=== PATIENT | male | born 1950 ===

== ENCOUNTER 2024-12-12 21:07 | Inpatient (IN) | payer MEDICARE, MEDICAID ==
[~2024-12-12] VITALS: Ht 165.1 cm; Wt 70.6 kg
[2024-12-12 21:30] VITALS: PULSE 30; RESP 12; O2SAT 95
--- NOTE | 2024-12-12 21:51 | ED.PDOC ---
Altered Mental Status HPI Comments 74-year-old male with a history of having hyperkalemia about a month ago and then he left the hospital now presents after he passed out at home and had some incontinence. Patient noted to have a slow heart rate and low blood pressure on arrival Chief Complaint: Syncope Time Seen by MD: 21:25 Reviewed Notes: Nurses Notes Allergies: Coded Allergies: NO KNOWN ALLERGIES (Unverified , 12/12/24) Information Source: Patient, Relative Mode of Arrival: EMS Severity: Moderate, Severe Duration: Since onset Quality: Decreased Alertness Past Medical History PAST MEDICAL HISTORY: DM, High Lipids, HTN Social History Smoker: Non-Smoker Alcohol: Rarely Drugs: Denies Drug Use Constitutional: reports: fatigue Cardiovascular: reports: dizzy spells, syncope All Other Systems: Reviewed and Negative Physical Exam Exam Comments Hypertensive, bradycardic General Appearance: Moderate Distress HEENT: Normal ENT Inspection, Pharynx Normal, TMs Normal Neck: Full Range of Motion, Non-Tender, Normal, Normal Inspection Respiratory: Chest Non-Tender, Lungs Clear, No Accessory Muscle Use, No Respiratory Distress, Normal Breath Sounds Cardiovascular: Bradycardia Breast Exam: Deferred Gastrointestinal: No Organomegaly, Non Tender, No Pulsatile Mass, Normal Bowel Sounds, Soft Genitalia: Deferred Pelvic: Deferred Rectal: Deferred Extremities: No calf tenderness, Normal capillary refill, Normal inspection, Normal range of motion, Non-tender, No pedal edema Musculoskeletal : Apperance: Normal Neurologic: Alert, die caster II-XII nml as Tested, No Motor Deficits, Normal Affect, Normal Mood, No Sensory Deficits Cerebellar Function: Normal Reflexes: Normal Skin: Dry, Normal Color, Warm Lymphatic: No Adenopathy EKG EKG : Cardiac Rhythm: SB Block: 3 Was a procedure done? Was a procedure done?: No Differential Diagnosis (ALOC) Differential Diagnosis: Dehydration, Sepsis, Seizure, Closed Head Injury, SAH, Heart Failure, Renal Failure, Other X-Ray, Labs, Meds, VS Vital Signs Date Time Temp Pulse Resp B/P (MAP) Pulse Ox O2 Delivery O2 Flow Rate FiO2 12/12/24 22:35 28 12/12/24 22:30 65/32 12/12/24 22:20 65/32 12/12/24 22:18 65/32 12/12/24 21:47 98.7 30 12 90/36 (54) 96 98.7 12/12/24 21:17 97.8 35 16 106/51 98 97.8 12/12/24 21:08 33 Lab Test 12/12/24 21:46 Range/Units White Blood Count 8.1 4.4-10.8 10^3/uL Red Blood Count 4.61 4.5-5.90 10^6/uL Hemoglobin 13.6 13.5-17.5 g/dL Hematocrit 39.9 L 41.0-53.0 % Mean Corpuscular Volume 86.6 80.0-100.0 fL Mean Corpuscular Hemoglobin 29.4 28.0-32.0 pg Mean Corpuscular Hemoglobin Concent 34.0 32.0-36.0 g/dL Red Cell Distribution Width 14.1 11.8-14.3 % Platelet Count 64 L 140-450 10^3/uL Mean Platelet Volume 8.0 6.9-10.8 fL Neutrophils (%) (Auto) 70.5 37.0-80.0 % Lymphocytes (%) (Auto) 19.5 10.0-50.0 % Monocytes (%) (Auto) 6.7 0.0-12.0 % Eosinophils (%) (Auto) 2.6 0.0-7.0 % Basophils (%) (Auto) 0.7 0.0-2.0 % Neutrophils # (Auto) 5.7 1.6-8.6 10 ^3/uL Lymphocytes # (Auto) 1.6 0.4-5.4 10 ^3/uL Monocytes # (Auto) 0.5 0-1.3 10 ^3/uL Eosinophils # (Auto) 0.2 0-0.8 10 ^3/uL Basophils # (Auto) 0.1 0-0.2 10 ^3/uL Nucleated Red Blood Cells 0.0 % Platelet Estimate Pending Sodium Level 143 136-145 mmol/L Potassium Level 4.8 3.5-5.1 mmol/L Chloride Level 107 98-107 mmol/L Carbon Dioxide Level 29 20-31 mmol/L Anion Gap 7 5-15 Blood Urea Nitrogen 15 9-23 mg/dL Creatinine 1.01 0.700-1.30 mg/dL Glomerular Filtration Rate Calc 78 >90 mL/min BUN/Creatinine Ratio 14.9 10.0-20.0 Serum Glucose 195 H 74-106 mg/dL Lactic Acid Level 1.7 0.4-2.0 mmol/L Calcium Level 9.0 8.7-10.4 mg/dL Magnesium Level 2.2 1.6-2.6 mg/dL Total Bilirubin 0.7 0.2-1.0 mg/dL Aspartate Amino Transferase (AST) 36 13-40 U/L Alanine Aminotransferase (ALT) 39 7-40 U/L Alkaline Phosphatase 93 46-116 U/L Total Protein 6.4 5.7-8.2 g/dL Albumin 4.2 3.2-4.8 g/dL Current Medications Medications (Trade) Dose Ordered Sig/Jimmy Route Start Time Stop Time Status Last Admin Sodium Chloride 1,000 ml @ 1,000 mls/hr Q1H ONCE IVB 12/12/24 21:45 12/12/24 22:44 DC 12/12/24 22:01 Atropine Sulfate (Atropine Sulfate) 1 mg ONCE ONCE IV 12/12/24 22:15 12/12/24 22:16 DC 12/12/24 22:19 Dopamine HCl/ Dextrose 250 ml @ 13.538 mls/ hr [id number] ONCE IV 12/12/24 22:15 12/13/24 16:42 12/12/24 22:18 Dopamine HCl/ Dextrose 250 ml @ 13.538 mls/ hr [id number] IV 12/12/24 22:15 12/12/24 22:20 Ondansetron HCl (Zofran) 4 mg ONCE ONCE IV 12/12/24 22:45 12/12/24 22:46 DC 12/12/24 22:50 Time of 1ST Reevaluation: 21:50 Reevaluation 1ST: Unchanged Consultation: Cardiology Patient Education/Counseling: Diagnosis, Treatment Family Education/Counseling: Diagnosis, Treatment SEPSIS Sepsis Screen Date sepsis recognized/suspect: Dec 12, 2024 Time Sepsis recognized/suspect: 2111 Recent Procedure: No On Antibiotic Therapy: No Respiratory Rate >20: No Heart Rate >90: Yes Temp<36 C (96.8 F) or >38.3 C: No SBP <90 or MAP <65 mmHG: No New Acute Mental Status Change: No Is the patient on CPAP, BIPAP,: No Physician Orders Electrocardigram (12/12/24 21:22) Complete Blood Count (12/12/24 21:40) Urinalysis (12/12/24 21:40) Heplock Iv (12/12/24 21:40) Blood Culture (12/12/24 21:40) Chest Portable (12/12/24 21:40) Payroll Supervisor (12/12/24 21:40) Dopamine 1600mcg/Ml D5w (12/12/24 22:15) Dopamine 1600mcg/Ml D5w (12/12/24 22:15) Rbc Morphology (12/12/24 21:46) * Cardiology Consult (12/12/24 22:30) *Consult Dr.Mukeshchandra Dalton (12/12/24 22:30) Pacer Pads On Standby (12/12/24 22:31) Transcutaneous Pacer Settings (12/12/24 22:31) Vital Signs Date Time Temp Pulse Resp B/P (MAP) Pulse Ox O2 Delivery O2 Flow Rate FiO2 12/12/24 22:35 28 12/12/24 22:30 65/32 12/12/24 22:20 65/32 12/12/24 22:18 65/32 12/12/24 21:47 98.7 30 12 90/36 (54) 96 98.7 12/12/24 21:17 97.8 35 16 106/51 98 97.8 12/12/24 21:08 33 Laboratory Tests Test 12/12/24 21:46 Lactic Acid Level 1.7 mmol/L (0.4-2.0) White Blood Count 8.1 10^3/uL (4.4-10.8) Medications Medications Dose Ordered Sig/Jimmy Route Start Time Stop Time Status Last Admin Dose Admin Atropine Sulfate 1 mg ONCE ONCE IV 12/12/24 22:15 12/12/24 22:16 DC 12/12/24 22:19 Dopamine HCl/ Dextrose 250 ml @ 13.538 mls/ hr [id number] IV 12/12/24 22:15 12/12/24 22:20 Dopamine HCl/ Dextrose 250 ml @ 13.538 mls/ hr [id number] ONCE IV 12/12/24 22:15 12/13/24 16:42 12/12/24 22:18 Ondansetron HCl 4 mg ONCE ONCE IV 12/12/24 22:45 12/12/24 22:46 DC 12/12/24 22:50 Sodium Chloride 1,000 ml @ 1,000 mls/hr Q1H ONCE IVB 12/12/24 21:45 12/12/24 22:44 DC 12/12/24 22:01 Departure 1 Departure Time of Disposition: 23:06 Impression: Primary Impression: Syncope Additional Impression: Heart block Disposition: 09 ADMITTED INPATIENT Admit to: ICU Condition: Critical Discharged With: Self, Relative, Spouse Comments Patient with a syncopal episode at home. Patient noted to be in third-degree heart block. Patient has been bradycardic and hypotensive. We discussed the case with Cardiology on-call Dr. Crump and he recommends dopamine drip and call the [place] mandarin speaking nanny. I discussed the case with Dr. Velasco who was the [place] mandarin speaking nanny. He states they keep the patient on the dopamine drip and he will see him in 1st thing in the morning to discuss pacemaker implantation. Critical Care Note Critical Care Time?: Yes (35 min-critical care time only) Critical care comment: Total critical care time: Approximately 36 minutes Due to a high probability of clinically significant, life threatening deterioration, the patient required my highest level of preparedness to intervene emergently and I personally spent this critical care time directly and personally managing the patient. This critical care time included obtaining a history; examining the patient; pulse oximetry; ordering and review of studies; arranging urgent treatment with development of a management plan; evaluation of patient's response to treatment; frequent reassessment; and, discussions with other providers. This critical care time was performed to assess and manage the high probability of imminent, life-threatening deterioration that could result in multi-organ failure. It was exclusive of separately billable procedures and treating other patients. Stability Stability form required: No Heart Score Heart Score: Heart Score Response (Comments) Value History Moderate Suspicious 1 EKG Repolarization Disturb 1 Age >65 2 Risk Factors 1 or 2 risk factors 1 Troponin Normal limit 0 Total 5 ROBERTA BURGOS MD Dec 12, 2024 21:51
[2024-12-12] MEDS: SODIUM CHLORIDE 0.9% 1,000 ML IVB ONE (22:01)
[2024-12-12 22:12] LABS: Hemoglobin 13.6 g/dL (13.5-17.5); Nucleated Red Blood Cells % 0.0 %
[2024-12-12 22:13] LABS: Hematocrit 39.9 % (41.0-53.0); Mean Corpuscular Hemoglobin 29.4 pg (28.0-32.0); Mean Corpuscular Volume 86.6 fL (80.0-100.0)
[2024-12-12] MEDS: DOPamine 1600MCG/ML D5W 250 ML IV SCH (22:15)
[2024-12-12] MEDS: DOPamine 1600MCG/ML D5W 250 ML IV ONE ×2 (22:16→22:18)
[2024-12-12] MEDS: ATROPINE SULF 1 MG/10ml SYR IV ONE (22:19)
[2024-12-12 22:25] LABS: Alanine Aminotransferase 39 U/L (7-40); Albumin 4.2 g/dL (3.2-4.8); Alkaline Phosphatase 93 U/L (46-116); Anion Gap 7 (5-15); BUN/Creatinine Ratio 14.9 (10.0-20.0); Bilirubin, Total 0.7 mg/dL (0.2-1.0); Blood Urea Nitrogen 15 mg/dL (9-23); Calcium 9.0 mg/dL (8.7-10.4); Carbon Dioxide 29 mmol/L (20-31); Magnesium 2.2 mg/dL (1.6-2.6); Potassium 4.8 mmol/L (3.5-5.1); Sodium 143 mmol/L (136-145); Total Protein 6.4 g/dL (5.7-8.2)
[2024-12-12 22:26] LABS: Chloride 107 mmol/L (98-107); Glucose 195 mg/dL (74-106)
[2024-12-12] MEDS: ONDANSETRON HCL 4 MG/2 ML VIAL ONE (22:50)
[2024-12-12] MEDS: ONDANSETRON HCL 4 MG/2 ML VIAL IV ONE ×2 (22:50→23:35)
--- NOTE | 2024-12-12 22:53 | DVH ---
INDICATION: hypotension, SOB TECHNIQUE: Frontal view of the chest. COMPARISON: None FINDINGS/IMPRESSION: Prominent interstitial markings. Prominence of the cardiomediastinal silhouette, likely accentuated by technique. No pleural effusion or pneumothorax. No acute osseous abnormality.
[2024-12-13] VITALS (19 sets, daily range): BP systolic 98–133; BP diastolic 57–77; PULSE 64–82; RESP 12–18; TEMP 98.6–99.4; O2SAT 93–100
[2024-12-13] MEDS ORDERED: MORPHINE SULFATE INJ 2 MG/ml SYRG IV PRN ×2 (02:30)
[2024-12-13] MEDS ORDERED: NITROGLYCERIN 0.4 MG SL TAB SL PRN (02:30)
[2024-12-13 03:19] LABS: Urine Protein, UAD Negative (Negative)
--- NOTE | 2024-12-13 03:40 | DVHHPRES ---
History of Present Illness Resident Creating Document: CLARKE DIAZ History of Present Illness Morgan Pono is a 74-year-old male patient who presents to ED with chief complaint of one episode of transient loss of consciousness which lasted 2 minutes, with no prodromes and no head trauma, without postictal., associated with diaphoresis, nausea, vomiting and diarrhea. Per patient he had similar symptoms of proximally two years ago where he was diagnosed with orthostatic syncope, but did not complain of any recent episodes. Patient is compliant with all his medication, he is not taking any beta-blockers or any negative chronotropic medication. Denies dyspnea, chest pain, palpitation and other associated symptoms. Patient was evaluated in ED completed EKG which showed complete AV block with a heart rate of 30 beats per minute associated with hypotension, responding to titratable dopamine drip. Past medical history: Diabetes, hypertension, dyslipidemia, diabetic peripheral neuropathy, peripheral arterial disease, GERD, BPH, hyperkalemia Surgical history: Bilateral hallux repair (multiple trauma due to his work) Family history: Son has testicular cancer Social history: Lives in [place] with family (next of kin is ). Ex tobacco abuse (10 pack-year history of smoking), quit 40 years ago. Denies current tobacco, alcohol and other drug abuse patient is a Orthodox, he refuses transfusions of any blood product Allergies: Denies Home medication: Tamsulosin, gabapentin, metformin 850 mg p.o. b.i.d., atorvastatin, enalapril, SPS for hyperkalemia Patient seen and examined at bedside. Currently feels better than on his admission, currently is on ICU status due to titratable dopamine drip. Planning to be evaluated by Dr. Velasco on a.m. of 12/13/2024 for eventual permanent pacemaker placement Past Medical History Per HPI Past Surgical History Per HPI Family History Per HPI Past Social History Per HPI Review of Systems Review of Systems Per HPI Allergies: Coded Allergies: NO KNOWN ALLERGIES (Unverified , 12/12/24) Medications Current Medications Medications Dose Ordered Sig/Jimmy Route Start Time Stop Time Status Last Admin Dose Admin Dopamine HCl/ Dextrose 250 ml @ 13.538 mls/ hr [id number] IV 12/12/24 22:15 12/12/24 23:30 13.538 MLS/HR Acetaminophen 325 mg Q4HP PRN PO 12/13/24 02:30 Enoxaparin Sodium 40 mg DAILY SC 12/13/24 10:00 UNV Morphine Sulfate 2 mg Q4HPRN PRN IV 12/13/24 02:30 Nitroglycerin 0.4 mg Q5MINP PRN SL 12/13/24 02:30 Morphine Sulfate 2 mg Q30M PRN IV 12/13/24 02:30 Exam Vital Signs Vital Signs Date Time Temp Pulse Resp B/P (MAP) Pulse Ox O2 Delivery O2 Flow Rate FiO2 12/13/24 03:15 115/66 12/13/24 03:00 85 18 93 12/12/24 23:41 98.7 98.7 12/12/24 21:30 Room Air* 0 21 Exam Patient lying in bed, in no acute distress General: Lucid, afebrile, mucosae are moist Cardiovascular: Normal S1 and S2. No murmurs, gallops or rubs Respiratory: Normal ventilation mechanics. Clear lung sounds on auscultation Abdomen: Soft, nontender, no organomegaly, normal bowel sounds MSK/skin: Mobilizes 4 limbs. Skin is dry and warm Neurological: Oriented in 3 spheres. No motor no sensitive deficits. Pupils are isocoric and reactive Labs/Xrays Labs Test 12/13/24 02:20 12/13/24 01:35 12/12/24 21:46 Range/Units Troponin I High Sensitivity 30 </=54 ng/L White Blood Count 8.1 4.4-10.8 10^3/uL Red Blood Count 4.61 4.5-5.90 10^6/uL Hemoglobin 13.6 13.5-17.5 g/dL Hematocrit 39.9 L 41.0-53.0 % Mean Corpuscular Volume 86.6 80.0-100.0 fL Mean Corpuscular Hemoglobin 29.4 28.0-32.0 pg Mean Corpuscular Hemoglobin Concent 34.0 32.0-36.0 g/dL Red Cell Distribution Width 14.1 11.8-14.3 % Platelet Count 64 L 140-450 10^3/uL Mean Platelet Volume 8.0 6.9-10.8 fL Neutrophils (%) (Auto) 70.5 37.0-80.0 % Lymphocytes (%) (Auto) 19.5 10.0-50.0 % Monocytes (%) (Auto) 6.7 0.0-12.0 % Eosinophils (%) (Auto) 2.6 0.0-7.0 % Basophils (%) (Auto) 0.7 0.0-2.0 % Neutrophils # (Auto) 5.7 1.6-8.6 10 ^3/uL Lymphocytes # (Auto) 1.6 0.4-5.4 10 ^3/uL Monocytes # (Auto) 0.5 0-1.3 10 ^3/uL Eosinophils # (Auto) 0.2 0-0.8 10 ^3/uL Basophils # (Auto) 0.1 0-0.2 10 ^3/uL Nucleated Red Blood Cells 0.0 % Platelet Estimate [place] Large Platelets Few Sodium Level 143 136-145 mmol/L Potassium Level 4.8 3.5-5.1 mmol/L Chloride Level 107 98-107 mmol/L Carbon Dioxide Level 29 20-31 mmol/L Anion Gap 7 5-15 Blood Urea Nitrogen 15 9-23 mg/dL Creatinine 1.01 0.700-1.30 mg/dL Glomerular Filtration Rate Calc 78 >90 mL/min BUN/Creatinine Ratio 14.9 10.0-20.0 Serum Glucose 195 H 74-106 mg/dL Lactic Acid Level 1.7 0.4-2.0 mmol/L Calcium Level 9.0 8.7-10.4 mg/dL Magnesium Level 2.2 1.6-2.6 mg/dL Total Bilirubin 0.7 0.2-1.0 mg/dL Aspartate Amino Transferase (AST) 36 13-40 U/L Alanine Aminotransferase (ALT) 39 7-40 U/L Alkaline Phosphatase 93 46-116 U/L Total Protein 6.4 5.7-8.2 g/dL Albumin 4.2 3.2-4.8 g/dL SEPSIS Sepsis Screen Date sepsis recognized/suspect: Dec 12, 2024 Time Sepsis recognized/suspect: 2148 Recent Procedure: No On Antibiotic Therapy: No Respiratory Rate >20: No Heart Rate >90: No Temp<36 C (96.8 F) or >38.3 C: No SBP <90 or MAP <65 mmHG: Yes New Acute Mental Status Change: No Is the patient on CPAP, BIPAP,: No Physician Orders Electrocardigram (12/12/24 21:22) Heplock Iv (12/12/24 21:40) Blood Culture (12/12/24 21:40) Chest Portable (12/12/24 21:40) Circular Sawyer Helper (12/12/24 21:40) Dopamine 1600mcg/Ml D5w (12/12/24 22:15) Dopamine 1600mcg/Ml D5w (12/12/24 22:15) * Cardiology Consult (12/12/24 22:30) *Consult Dr.Mukeshchandra Dalton (12/12/24 22:30) Pacer Pads On Standby (12/12/24 22:31) Transcutaneous Pacer Settings (12/12/24 22:31) Admit (12/13/24 02:25) Code Status (12/13/24 02:25) Acetaminophen Tablet (Tylenol Tablet) (12/13/24 02:30) Enoxaparin Sodium (Lovenox) (12/13/24 10:00) Complete Blood Count (12/13/24 04:00) Comprehensive Metabolic Panel (12/13/24 04:00) Npo (Nothing By Mouth) Diet (12/13/24 Breakfast) Echo 2d Mode Cardiac Dop (12/13/24 02:25) Carotid Duplx W Color Dop (12/13/24 02:25) Morphine Sulfate Injection (12/13/24 02:30) Nitroglycerin Sublingual (Ntrostat Subli (12/13/24 02:30) Morphine Sulfate Injection (12/13/24 02:30) Oxygen By Nasal Cannula (12/13/24 02:25) Stat Ekg For Chest Pain (12/13/24 02:25) Notify Md Of Changes From Base (12/13/24 02:25) Oracle Brm Developer For 24 Hours (12/13/24 02:25) Emergency Dysrhythmia Protocol (12/13/24 02:25) Rhythm Strips Once Every Shift (12/13/24 02:25) Drug Screen (12/13/24 02:43) Urinalysis (12/13/24 02:43) Communication Order (12/13/24 02:58) Vitamin D, 25-Hydroxy (12/13/24 04:00) Vitamin B12 (12/13/24 04:00) Thyroid Stimulating Hormone (12/13/24 04:00) PTPTT (12/13/24 04:00) Phosphorus (12/13/24 04:00) Magnesium (12/13/24 04:00) Lipid Panel (12/13/24 04:00) Hemoglobin A1c (12/13/24 04:00) Sequential Compression Device (12/13/24 03:15) B-Type Natriuretic Peptide (12/13/24 04:00) Vital Signs Date Time Temp Pulse Resp B/P (MAP) Pulse Ox O2 Delivery O2 Flow Rate FiO2 12/13/24 03:15 115/66 12/13/24 03:00 110/68 12/13/24 03:00 85 18 138/77 (97) 93 12/13/24 02:45 88 18 115/76 (89) 100 12/13/24 02:30 83 18 107/61 (76) 97 12/13/24 02:30 107/61 12/13/24 02:15 92 16 116/65 (82) 96 12/13/24 02:00 91 16 117/68 (84) 96 12/13/24 02:00 107/61 12/13/24 01:45 102 17 131/78 (95) 95 12/13/24 01:30 131/74 12/13/24 01:30 104 17 131/73 (92) 95 12/13/24 01:15 107 17 133/74 (93) 90 12/13/24 01:00 126/70 12/13/24 01:00 109 12 120/66 (84) 98 12/13/24 00:50 109 12 120/66 (84) 98 12/13/24 00:45 106 16 108/60 (76) 93 12/13/24 00:38 108/60 12/13/24 00:30 108/60 12/13/24 00:30 104 17 133/74 (93) 95 12/13/24 00:15 107 17 133/74 (93) 90 12/13/24 00:00 106 12/13/24 00:00 109 36 120/66 (84) 98 12/12/24 23:45 113 17 118/62 (80) 99 12/12/24 23:41 98.7 115 14 123/53 (76) 100 98.7 12/12/24 23:30 123/53 923/25 23:30 121 23 123/53 (76) 98 12/12/24 23:20 141/63 12/12/24 23:15 132 23 141/63 (89) 97 12/12/24 23:00 148 26 121/56 (77) 94 12/12/24 22:47 98.7 52 14 99/46 (63) 96 98.7 12/12/24 22:45 70 12/12/24 22:35 28 12/12/24 22:30 65/32 12/12/24 22:18 65/32 12/12/24 21:47 98.7 30 12 90/36 (54) 96 98.7 12/12/24 21:30 30 12 95 Room Air* 0 21 12/12/24 21:17 97.8 35 16 106/51 98 97.8 12/12/24 21:08 33 Laboratory Tests Test 12/12/24 21:46 Lactic Acid Level 1.7 mmol/L (0.4-2.0) White Blood Count 8.1 10^3/uL (4.4-10.8) Medications Medications Dose Ordered Sig/Jimmy Route Start Time Stop Time Status Last Admin Dose Admin Atropine Sulfate 1 mg ONCE ONCE IV 12/12/24 22:15 12/12/24 22:16 DC 12/12/24 22:19 1 MG Dopamine HCl/ Dextrose 250 ml @ 13.538 mls/ hr [id number] IV 12/12/24 22:15 12/12/24 23:30 13.538 MLS/HR Dopamine HCl/ Dextrose 250 ml @ 13.538 mls/ hr [id number] ONCE IV 12/12/24 22:15 12/13/24 16:42 12/12/24 22:18 13.538 MLS/HR Ondansetron HCl 4 mg ONCE ONCE IV 12/12/24 22:45 12/12/24 22:46 DC 12/12/24 22:50 4 MG Ondansetron HCl 4 mg ONCE ONCE IV 12/12/24 23:30 12/12/24 23:31 DC 12/12/24 23:35 4 MG Sodium Chloride 1,000 ml @ 1,000 mls/hr Q1H ONCE IVB 12/12/24 21:45 12/12/24 22:44 DC 12/12/24 22:01 1,000 MLS/HR Assessment/Plan Assessment/Plan Syncope secondary to Complete atrioventricular block EKG shows complete AV block with diffuse deep negative T-waves. Troponin x3 negative Patient currently on titratable dopamine drip (currently 2.5 ug/kg/min), with good chronotropic response Unlikely secondary cause. Pending TSH Cardiology was consulted Thrombocytopenia Yarsanism-refuses transfusion of blood products Have explained risk of not accepting transfusion, patient understands and takes full responsibility of his decision. Avoid heparin. Currently on SCDs Diabetes non-insulin dependent Diabetic peripheral neuropathy Peripheral artery disease Patient's home medications metformin. Currently in hospitalization indicated insulin sliding scale Patient was not on aspirin, probably due to thrombocytopenia. Continue atorvastatin at this point Continue gabapentin Hypertension Dyslipidemia History of hyperkalemia Continue atorvastatin. Discontinued enalapril due to severe hypotension on admission, currently on dopamine drip. No evidence of hyperkalemia in laboratory workup. We will monitor GERD BPH Continue pantoprazole. Discontinue tamsulosin due to hypotension. Evaluate initiating after hemodynamic stability Goals of care discussed with patient and family for over 18 minutes: Full code status Discussed plan with Dr. Feng, patient and nurses: We will keep patient in ICU status due to dopamine drip, keep patient NPO for evaluation by Cardiology for probable permanent pacemaker placement. Patient has poor prognosis Critical care time spent including discussion with nursing and family, excluding procedures: 76 minutes Plan discussed with: Patient, Spouse, Son, Other (Nurses) My Orders Orders - CLARKE DIAZ RESIDENT Procedure Category Date Status Time Admit ADMIT 12/13/24 Transmitted 02:25 Code Status CODE 12/13/24 Transmitted 02:25 Acetaminophen Tablet PHA 12/13/24 In Process (Tylenol Tablet) 02:30 Enoxaparin Sodium PHA 12/13/24 Pending (Lovenox) 10:00 Complete Blood Count LAB 12/13/24 Logged 04:00 Comprehensive LAB 12/13/24 Logged Metabolic Panel 04:00 Npo (Nothing By DIET 12/13/24 Transmitted Mouth) Diet Breakfast Echo 2d Mode Cardiac US 12/13/24 Logged DOP 02:25 Carotid Duplx W Color US 12/13/24 Logged DOP 02:25 Morphine Sulfate PHA 12/13/24 In Process Injection 02:30 Nitroglycerin PHA 12/13/24 In Process Sublingual (Ntrostat 02:30 Morphine Sulfate PHA 12/13/24 In Process Injection 02:30 Oxygen By Nasal RT 12/13/24 Transmitted Cannula 02:25 Stat Ekg For Chest [facility] 12/13/24 In Process Pain 02:25 Notify Of Changes [facility] 12/13/24 In Process From Base 02:25 Oracle Brm Developer For [facility] 12/13/24 In Process 24 Hours 02:25 Emergency Dysrhythmia [facility] 12/13/24 In Process Protocol 02:25 Rhythm Strips Once [facility] 12/13/24 In Process Every Shift 02:25 Drug Screen LAB 12/13/24 In Process 02:43 Urinalysis LAB 12/13/24 In Process 02:43 Communication Order ORDERS 12/13/24 Transmitted 02:58 Vitamin D, 25-Hydroxy LAB 12/13/24 Verified 04:00 Vitamin B12 LAB 12/13/24 Verified 04:00 Thyroid Stimulating LAB 12/13/24 Verified Hormone 04:00 PTPTT LAB 12/13/24 Verified 04:00 Phosphorus LAB 12/13/24 Verified 04:00 Magnesium LAB 12/13/24 Verified 04:00 Lipid Panel LAB 12/13/24 Verified 04:00 Hemoglobin A1c LAB 12/13/24 Verified 04:00 Sequential DORIS 12/13/24 Verified Compression Device 03:15 B-Type Natriuretic LAB 12/13/24 Verified Peptide 04:00 Date of Service: Dec 13, 2024 Billing Provider: JAMES FENG MD Common Visit Codes: 10810-[id number] INP/OBS CARE (HIGH) Secondary Visit Codes: [id number] CARE PLAN 30 MINUTES CLARKE DIAZ RESIDENT Dec 13, 2024 03:40
[2024-12-13] MEDS ORDERED: DEXTROSE (50%) 50ML SYRG IV PRN (03:45)
[2024-12-13] MEDS: PANTOPRAZOLE 40 MG/10 ML VIAL INJ IV ONE (03:54)
[2024-12-13 04:00] LABS: Amphetamine Screen, Urine Neg (NEGATIVE); Barbiturate Scree,Urine Neg (NEGATIVE); Benzodiazephine Screen, Urine Neg (NEGATIVE); Cannabinoid Screen, Urine Neg (NEGATIVE); Cocaine Screen, Urine Neg (NEGATIVE); Opiate Scree,Urine Neg (NEGATIVE); Phencyclidine Screen, Urine Neg (NEGATIVE)
[2024-12-13 05:03] LABS: Hematocrit 42.9 % (41.0-53.0); Hemoglobin 14.5 g/dL (13.5-17.5); Mean Corpuscular Hemoglobin 29.0 pg (28.0-32.0); Mean Corpuscular Volume 85.9 fL (80.0-100.0); Nucleated Red Blood Cells % 0.1 %
[2024-12-13 05:28] LABS: Alanine Aminotransferase 76 U/L (7-40); Albumin 4.7 g/dL (3.2-4.8); Alkaline Phosphatase 95 U/L (46-116); Anion Gap 9 (5-15); BUN/Creatinine Ratio 14.6 (10.0-20.0); Bilirubin, Total 1.2 mg/dL (0.2-1.0); Blood Urea Nitrogen 14 mg/dL (9-23); Calcium 9.2 mg/dL (8.7-10.4); Carbon Dioxide 29 mmol/L (20-31); Chloride 106 mmol/L (98-107); Cholesterol 130 mg/dL (< 200); Glucose 167 mg/dL (74-106); HDL Cholesterol 53 mg/dL (40-59); Magnesium 2.1 mg/dL (1.6-2.6); Potassium 4.0 mmol/L (3.5-5.1); Sodium 144 mmol/L (136-145); Total Protein 7.3 g/dL (5.7-8.2); Triglycerides 51 mg/dL (< 150)
[2024-12-13] MEDS: ACCU-CHEK COMFORT CURVE STRIP VI SCH (05:57)
[2024-12-13] MEDS: InsuLIN REG 1unit/0.01ml Soln (100units/ml) SC SCH (06:03)
[2024-12-13 06:12] LABS: INR 1.06 (0.9-1.15); Partial Thromboplastin Time 23.4 SEC (24.5-34.5); Prothrombin Time 11.2 sec (9.3-11.8)
--- NOTE | 2024-12-13 07:08 | ECG ---
[facility] Test Date: 2024-12-12 Test Time: 22:35:54 Pat Name: ALAN CRAWFORD Department: Room: 0292T Gender: M Physician/Allergy/Immunology: CELESTINO : 1950 Requested By: EMERGENCY EMERGENCY Order Number: [id number] Reading MD: Jason Leung Measurements Intervals [place] Rate: 28 P: 53 IA: 0 QRS: -29 QRSD: 124 T: 263 QT: 674 QTc: 460 Interpretive Statements AV block, complete (third degree) Left bundle branch block Electronically Signed On 12-21-2024 21:29:44 PDT by Jason Leung Please click the below link to view image of tracing.
--- NOTE | 2024-12-13 07:14 | DVHINCON2 ---
Date of service: Dec 13, 2024 History of Present Illness HPI Patient is 74 year old male who presented with episode of LOC which was followed by nausea/vomiting and diarrhea. While in ED was found to have complete heart block. Past Medical History Others PMH includes: DM, hypertension, hyperlipidemia, Diabetic Neuropathy, PAd, GERD, BPG, and old history of hyperkalemia Alocohol: None Lives with: With family Review of Systems Constitutional: No symptom reported Ears, Nose, & Throat: No symptom reported Eyes: No symptom reported Cardiovascular: Lt Headedness Gastrointestinal: Nausea, Vomiting, Diarrhea Genitourinary: No symptom reported Musculoskeletal: No symptom reported All Other Systems 14 point review of system was performed. Relevant findings as per above and as per HPI. Otherwise, negative H&P Exam Vital Signs Vital Signs Date Time Temp Pulse Resp B/P (MAP) Pulse Ox O2 Delivery O2 Flow Rate FiO2 12/13/24 07:00 67 14 146/59 (88) 98 12/12/24 23:41 98.7 98.7 12/12/24 21:30 Room Air* 0 21 General Appeara: Well developed Head Exam: Normal inspection Neck Exam: Normal inspection Eye Exam: bilateral eye PERRL Mouth: Normal Inspection Pulmonary/Respiratory: Lungs clear Cardiovascular/Chest: Regular rate Peripheral Pulses: 2+ carotid (R), 2+ carotid (L), 2+ femoral (R), 2+ femoral (L), 2+ dorsalis pedis (R), 2+ dorsalis pedis (L), 2+ Radial (R), 2+ Radial (L) Abdominal Exam: Normal bowel sounds, Soft, No hepatospenomegaly Neuro/Mental St: Alert, Oriented Appearance: Appropriate appearance Eye contact/ Speech: Cooperative Labs/Xrays Labs Test 12/13/24 05:56 12/13/24 05:42 12/13/24 04:49 12/13/24 02:20 Range/Units POC Glucose 154 H 70-106 mg/dl Prothrombin Time 11.2 9.3-11.8 sec Prothrombin Time INR 1.06 0.9-1.15 Activated Partial Thromboplast Time 23.4 L 24.5-34.5 SEC White Blood Count 7.6 4.4-10.8 10^3/uL Red Blood Count 5.00 4.5-5.90 10^6/uL Hemoglobin 14.5 13.5-17.5 g/dL Hematocrit 42.9 41.0-53.0 % Mean Corpuscular Volume 85.9 80.0-100.0 fL Mean Corpuscular Hemoglobin 29.0 28.0-32.0 pg Mean Corpuscular Hemoglobin Concent 33.8 32.0-36.0 g/dL Red Cell Distribution Width 14.4 H 11.8-14.3 % Platelet Count 70 L 140-450 10^3/uL Mean Platelet Volume 7.4 6.9-10.8 fL Neutrophils (%) (Auto) 81.1 H 37.0-80.0 % Lymphocytes (%) (Auto) 12.4 10.0-50.0 % Monocytes (%) (Auto) 5.7 0.0-12.0 % Eosinophils (%) (Auto) 0.3 0.0-7.0 % Basophils (%) (Auto) 0.5 0.0-2.0 % Neutrophils # (Auto) 6.2 1.6-8.6 10 ^3/uL Lymphocytes # (Auto) 0.9 0.4-5.4 10 ^3/uL Monocytes # (Auto) 0.4 0-1.3 10 ^3/uL Eosinophils # (Auto) 0 0-0.8 10 ^3/uL Basophils # (Auto) 0 0-0.2 10 ^3/uL Nucleated Red Blood Cells 0.1 % Sodium Level 144 136-145 mmol/L Potassium Level 4.0 3.5-5.1 mmol/L Chloride Level 106 98-107 mmol/L Carbon Dioxide Level 29 20-31 mmol/L Anion Gap 9 5-15 Blood Urea Nitrogen 14 9-23 mg/dL Creatinine 0.96 0.700-1.30 mg/dL Glomerular Filtration Rate Calc 83 >90 mL/min BUN/Creatinine Ratio 14.6 10.0-20.0 Serum Glucose 167 H 74-106 mg/dL Hemoglobin A1c 6.2 H <5.7 % A1C Calcium Level 9.2 8.7-10.4 mg/dL Phosphorus Level 3.4 2.4-5.1 mg/dL Magnesium Level 2.1 1.6-2.6 mg/dL Total Bilirubin 1.2 H 0.2-1.0 mg/dL Aspartate Amino Transferase (AST) 67 H 13-40 U/L Alanine Aminotransferase (ALT) 76 H 7-40 U/L Alkaline Phosphatase 95 46-116 U/L B-Type Natriuretic Peptide 155.63 0-100 pg/mL Total Protein 7.3 5.7-8.2 g/dL Albumin 4.7 3.2-4.8 g/dL Triglycerides Level 51 < 150 mg/dL Cholesterol Level 130 < 200 mg/dL LDL Cholesterol 73 < 100 mg/dL HDL Cholesterol 53 40-59 mg/dL Vitamin B12 Level 1905 H 211-911 pg/mL Vitamin D 25-Hydroxy 36.4 30.0-100 ng/mL Thyroid Stimulating Hormone (TSH) 0.65 0.55-4.78 uIU/mL Urine Color Colorless Yellow Urine Clarity Clear Clear Urine pH 7.0 5.0-9.0 Urine Specific [place] 1.008 1.001-1.035 Urine Protein Negative Negative Urine Ketones Trace Negative Urine Blood Trace H Negative /uL Urine Nitrite Negative Negative Urine Bilirubin Negative Negative Urine Urobilinogen Normal Negative mg/dL Urine Leukocyte Esterase Negative Negative /uL Urine RBC 17 0 - 3 /hpf Urine Microscopic WBC < 1 0-3 /HPF Urine Squamous Epithelial Cells None seen <5 /hpf Urine Bacteria None seen None Seen /hpf Urine Hyaline Casts Few 0 - 2 /lpf Urine Glucose 2+ H Normal mg/dL Urine Opiates Screen Neg NEGATIVE Urine Fentanyl Screen Neg NEGATIVE Urine Barbiturates Screen Neg NEGATIVE Urine Phencyclidine Screen Neg NEGATIVE Urine Amphetamines Screen Neg NEGATIVE Urine Benzodiazepines Screen Neg NEGATIVE Urine Cocaine Screen Neg NEGATIVE Urine Cannabinoids Screen Neg NEGATIVE Test 12/13/24 01:35 12/12/24 21:46 Range/Units Troponin I High Sensitivity 30 </=54 ng/L Platelet Estimate [place] Large Platelets Few Lactic Acid Level 1.7 0.4-2.0 mmol/L Assessment/Plan Plan Patient is 74 year old male who presented with episode of LOC which was followed by nausea/vomiting and diarrhea. While in ED was found to have complete heart block. NAD, no JVD, no goiter, Lungs are Clear to Auscultation, Cardiac: RR, no thrill, no gallop, BS+, no tenderness, no hepatomegally, no peripheral edema DP: 2+ bilateral, no gross lateralized neurologic deficit PMH includes: DM, hypertension, hyperlipidemia, Diabetic Neuropathy, PAd, GERD, BPG, and old history of hyperkalemia Creat: 1.01 - 0.96 K: 4.8 - 4.0 Trop (high sensitive): 14 - 30 BNP: 155.63 TSH: 0.65 UDS: non-revealing Chest xry: Arrival EKG: complete heart block Patient with syncope. Was found to have complete heart block in ED Syncope Complete heart block DM hypertension hyperlipidemia PAD Cardiac suggestion for management Manage in ICU Follow up electrolytes and kidney function test and correct abnormalities EP evaluation for PM implantation Echocardiogram Evaluation and management of co-morbidities as per primary team Further evaluation and management as per above and as per clinical course Thank you for consultation. A total of 75 minutes was spent reviewing the patient record, examining the patient, making a diagnostic and therapeutic plan, discussing this plan with medical personnel, following up on diagnostic studies and following the patient for clinical stability excluding any and all procedures. At least 50% of this time was spent in direct, [id number] contact. Thank you for allowing me to participate in this patient's care. Further recommendations will depend on patient's clinical course. Please do not hesitate to contact me if you have any questions or concerns. This medical document was created using electronic medical record system with [employer] computerized dictation system. Although this document has been carefully reviewed, there may still be some phonetic and typographical errors. These areas are purely typographical due to the imperfection of the software programs, and do not reflect any compromise in the patient's medical care. Plan discussed with: Patient, Other (nurse) FRIDA SU MD Dec 13, 2024 07:14
--- NOTE | 2024-12-13 09:02 | DVH ---
Carotid Duplex Date: 12/13/2024 07:19 AM Clinical History: Syncope Comparison: None Technique: Duplex Doppler evaluation of the extracranial carotid and vertebral arteries including col or Doppler and spectral/pulsed waveform analysis was performed. Findings: Velocities within normal limits. IMPRESSION: No hemodynamically significant stenosis noted in the right carotid system. No hemodynamically significant stenosis noted in the left carotid system. Reference: Radiology 2003; 229:[id number]
[2024-12-13] MEDS ORDERED: ENOXAPARIN SOD 40 MG/0.4 ML SYRINGE SC SCH (10:00)
[2024-12-13] MEDS: PANTOPRAZOLE 40 MG/10 ML VIAL INJ IV SCH (10:24)
--- NOTE | 2024-12-13 15:05 | DVHPN2 ---
Subjective Patient is seen at bedside today, doing well. Reviewed: H&P Changes from previous H/P or p: No Changes General: Per HPI Objective Vitals Vital Signs Date Time Temp Pulse Resp B/P (MAP) Pulse Ox O2 Delivery O2 Flow Rate FiO2 12/13/24 14:50 132/70 12/13/24 12:00 73 12/13/24 10:30 17 96 12/13/24 09:15 98.5 98.5 12/13/24 09:15 Room Air* 0 21 Exam GEN: Healthy appearing, well-developed, NAD. HEENT: NC/AT; MMM. CV: RRR, no m/r/g. LUNGS: CTAB, no w/r/c. ABD: Soft, NT/ND, NBS, no masses or organomegaly. EXT: skin Warm, well perfused. no rashes. No clubbing, cyanosis, or edema. NEURO: Ambulating with no limitations. No focal deficits. Medications Current Medications Medications Dose Ordered Sig/Jimmy Route Start Time Stop Time Status Last Admin Dose Admin Dopamine HCl/ Dextrose 250 ml @ 13.538 mls/ hr [id number] IV 12/12/24 22:15 12/12/24 23:30 13.538 MLS/HR Acetaminophen 325 mg Q4HP PRN PO 12/13/24 02:30 Morphine Sulfate 2 mg Q4HPRN PRN IV 12/13/24 02:30 Nitroglycerin 0.4 mg Q5MINP PRN SL 12/13/24 02:30 Morphine Sulfate 2 mg Q30M PRN IV 12/13/24 02:30 Diagnostic Test (Pha) 1 strip Q6HR 12/13/24 06:00 12/13/24 12:00 1 STRIP Insulin Human Regular Q6HR SC 12/13/24 06:00 12/13/24 06:03 2 UNITS Dextrose 50 ml UD PRN IV 12/13/24 03:45 Atorvastatin Calcium 20 mg HS PO 12/13/24 22:00 Pantoprazole Sodium 40 mg DAILY IV 12/13/24 10:00 12/13/24 10:24 40 MG Sodium Chloride 1,000 ml @ 150 mls/hr Q6H40M IV 12/13/24 14:00 UNV Laboratory Results Laboratory Tests 12/13/24 04:49 Chemistry Test 12/12/24 21:46 12/13/24 04:49 Albumin 4.2 g/dL (3.2-4.8) 4.7 g/dL (3.2-4.8) Calcium Level 9.0 mg/dL (8.7-10.4) 9.2 mg/dL (8.7-10.4) Magnesium Level 2.2 mg/dL (1.6-2.6) 2.1 mg/dL (1.6-2.6) Total Protein 6.4 g/dL (5.7-8.2) 7.3 g/dL (5.7-8.2) Phosphorus Level 3.4 mg/dL (2.4-5.1) Coagulation Test 12/13/24 05:42 Prothrombin Time 11.2 sec (9.3-11.8) Prothrombin Time INR 1.06 (0.9-1.15) Activated Partial Thromboplast Time 23.4 SEC (24.5-34.5) L Lipid panel Test 12/13/24 04:49 Cholesterol Level 130 mg/dL (< 200) HDL Cholesterol 53 mg/dL (40-59) Triglycerides Level 51 mg/dL (< 150) Cardiac Markers Test 12/13/24 04:49 B-Type Natriuretic Peptide 155.63 pg/mL (0-100) LFT Test 12/12/24 21:46 12/13/24 04:49 Alanine Aminotransferase (ALT) 39 U/L (7-40) 76 U/L (7-40) H Alkaline Phosphatase 93 U/L (46-116) 95 U/L (46-116) Aspartate Amino Transferase (AST) 36 U/L (13-40) 67 U/L (13-40) H Total Bilirubin 0.7 mg/dL (0.2-1.0) 1.2 mg/dL (0.2-1.0) H HgA1c, TSH Test 12/13/24 04:49 Hemoglobin A1c 6.2 % A1C (<5.7) H Thyroid Stimulating Hormone (TSH) 0.65 uIU/mL (0.55-4.78) Urinalysis Test 12/13/24 02:20 Urine Color Colorless (Yellow) Urine Clarity Clear (Clear) Urine pH 7.0 (5.0-9.0) Urine Specific [place] 1.008 (1.001-1.035) Urine Protein Negative (Negative) Urine Ketones Trace (Negative) Urine Blood Trace /uL (Negative) H Urine Nitrite Negative (Negative) Urine Bilirubin Negative (Negative) Urine Urobilinogen Normal mg/dL (Negative) Urine Leukocyte Esterase Negative /uL (Negative) Urine RBC 17 /hpf (0 - 3) Urine Microscopic WBC < 1 /HPF (0-3) Urine Squamous Epithelial Cells None seen /hpf (<5) Urine Bacteria None seen /hpf (None Seen) Urine Hyaline Casts Few /lpf (0 - 2) Urine Glucose 2+ mg/dL (Normal) H Labs and/or images reviewed: Labs reviewed by me, Image(s) reviewed by me Assessment/Plan Assessment/Plan 74-year-old male with a history of having hyperkalemia about a month ago and then he left the hospital now presents after he passed out at home and had some incontinence. Patient noted to have a slow heart rate and low blood pressure on arrival 12/13: patient seen at bedside, presented for syncope. on initial eval concern for 3rd degree block and started on dopamine, goal HR>40 and <70. EP consulted and possible plan for procedure OR for PPM today. will f/u with patient thereafter. there is noted thrombocytopenia but patient unaware. dx: Complete heart block, s/p PPM insertion 12/13/24 Syncope, due to above DM type 2, with neuropathy diabetic neuropathy hypertension hyperlipidemia PAD GERD BPH HLD plan: - continue dopamine . titrate to goal HR>40 and <70 - defer PPM decision to EP unit clerk - continue other home meds (no blockers, CCB or Bblockers) ICU full code Plan discussed with: Patient Date of Service: Dec 13, 2024 Billing Provider: FILIPPO KELLER MD Common Visit Codes: [id number] CARE 30-74 MIN FILIPPO KELLER MD Dec 13, 2024 15:05
[2024-12-13] MEDS: MIDAZOLAM HCL 2MG/2ML 2ml VIAL (1mg/ml) ONE (15:42)
[2024-12-13] MEDS: VANCOMYCIN HCL 1000 MG VL ONE (15:42)
[2024-12-13] MEDS: LIDOCAINE 2%HCL (LOCAL ANESTH.) INJ 20ML MDV ONE (15:42)
[2024-12-13] MEDS: fentaNYL CITRATE 100 MCG/2 ML VL ONE (15:42)
[2024-12-13] MEDS: VANCOMYCIN 1GM/250ML KIT 250 ML IV ONE (15:43)
[2024-12-13] MEDS: IODIXANOL 320MG/ML 100ML BTL IV ONE (16:12)
--- NOTE | 2024-12-13 18:10 | DVHINCON2 ---
Date of service: Dec 13, 2024 Reason for Consultation Complete Heart Block History of Present Illness This is a 74-year old male who initially presented 12/12/2024 with reported syncope. Upon ED arrival patient was found to be in complete heart block with lowest documented heart rates within the 20's subsequently initiated on Dopamine infusion for rate support. Echocardiogram had revealed a preserved LVEF of 55- 60%. TSH was found normal at 0.65. Electrolytes (magnesium/potassium) were found within normal ranges. Serial HS troponin trend was found negative. Electrop hysiology services were subsequently involved by primary team request for EP aspects of care. Echocardiogram: Left ventricle: Moderate concentric left ventricular hypertrophy was seen. LVEF was 55-60%. There was no gross wall motion abnormality. Abnormal relaxation of left ventricular diastolic function was observed. Right ventricle was normal-sized with normal systolic function. Both atria were normal-sized. Aortic valve: Aortic valve was trileaflet. There was no aortic insufficiency/stenosis. There was trace mitral/tricuspid regurgitation. Pulmonary valve did not reveal any insufficiency. Right katherine tricular systolic pressure was assessed normal at 22 mm Hg.There was trace pericardial effusion.IVC was not visualized. Past Medical History Reviewed Past Surgical History Reviewed Allergies: Coded Allergies: NO KNOWN ALLERGIES (Unverified , 12/12/24) Current Medications Current Medications Medications (Trade) Dose Ordered Sig/Jimmy Route PRN Reason Start Time Stop Time Status Last Admin Dopamine HCl/ Dextrose 250 ml @ 13.538 mls/ hr [id number] IV 12/12/24 22:15 12/12/24 23:30 Acetaminophen (Tylenol Tablet) 325 mg Q4HP PRN PO MILD PAIN (1-3 PAIN SCALE) 12/13/24 02:30 Enoxaparin Sodium (Lovenox) 40 mg DAILY SC 12/13/24 10:00 12/13/24 03:19 DC Morphine Sulfate 2 mg Q4HPRN PRN IV SEVERE PAIN (7-10 PAIN SCALE) 12/13/24 02:30 Nitroglycerin (Ntrostat Sublingual) 0.4 mg Q5MINP PRN SL FOR CHEST PAIN 12/13/24 02:30 Morphine Sulfate 2 mg Q30M PRN IV FOR CHEST PAIN 12/13/24 02:30 Diagnostic Test (Pha) (Accu-Chek Comfort Curve T) 1 strip Q6HR 12/13/24 06:00 12/13/24 12:00 Insulin Human Regular (InsuLIN R) Q6HR SC 12/13/24 06:00 12/13/24 06:03 Dextrose 50 ml UD PRN IV Blood Sugar LESS THAN 60 12/13/24 03:45 Atorvastatin Calcium (Lipitor) 20 mg HS PO 12/13/24 22:00 Pantoprazole Sodium (Protonix) 40 mg DAILY IV 12/13/24 10:00 12/13/24 10:24 Sodium Chloride 1,000 ml @ 150 mls/hr Q6H40M IV 12/13/24 14:00 Review of Systems A 14-point review of systems is negative unless otherwise noted above Vital Signs Vital Signs Date Time Temp Pulse Resp B/P (MAP) Pulse Ox O2 Delivery O2 Flow Rate FiO2 12/13/24 14:50 132/70 12/13/24 14:45 73 19 95 12/13/24 09:15 98.5 98.5 12/13/24 09:15 Room Air* 0 21 Physical Exam Heart: S1 and S2 regular. Bradycardic Lungs: Clear to auscultation Abdomen: Benign. Extremities: Distal pulses palpable, 2+. No evidence for peripheral edema Labs/Diagnostic Data Labs Test 12/13/24 12:50 12/13/24 05:42 12/13/24 04:49 12/13/24 02:20 Range/Units POC Glucose 117 H 70-106 mg/dl Prothrombin Time 11.2 9.3-11.8 sec Prothrombin Time INR 1.06 0.9-1.15 Activated Partial Thromboplast Time 23.4 L 24.5-34.5 SEC White Blood Count 7.6 4.4-10.8 10^3/uL Red Blood Count 5.00 4.5-5.90 10^6/uL Hemoglobin 14.5 13.5-17.5 g/dL Hematocrit 42.9 41.0-53.0 % Mean Corpuscular Volume 85.9 80.0-100.0 fL Mean Corpuscular Hemoglobin 29.0 28.0-32.0 pg Mean Corpuscular Hemoglobin Concent 33.8 32.0-36.0 g/dL Red Cell Distribution Width 14.4 H 11.8-14.3 % Platelet Count 70 L 140-450 10^3/uL Mean Platelet Volume 7.4 6.9-10.8 fL Neutrophils (%) (Auto) 81.1 H 37.0-80.0 % Lymphocytes (%) (Auto) 12.4 10.0-50.0 % Monocytes (%) (Auto) 5.7 0.0-12.0 % Eosinophils (%) (Auto) 0.3 0.0-7.0 % Basophils (%) (Auto) 0.5 0.0-2.0 % Neutrophils # (Auto) 6.2 1.6-8.6 10 ^3/uL Lymphocytes # (Auto) 0.9 0.4-5.4 10 ^3/uL Monocytes # (Auto) 0.4 0-1.3 10 ^3/uL Eosinophils # (Auto) 0 0-0.8 10 ^3/uL Basophils # (Auto) 0 0-0.2 10 ^3/uL Nucleated Red Blood Cells 0.1 % Sodium Level 144 136-145 mmol/L Potassium Level 4.0 3.5-5.1 mmol/L Chloride Level 106 98-107 mmol/L Carbon Dioxide Level 29 20-31 mmol/L Anion Gap 9 5-15 Blood Urea Nitrogen 14 9-23 mg/dL Creatinine 0.96 0.700-1.30 mg/dL Glomerular Filtration Rate Calc 83 >90 mL/min BUN/Creatinine Ratio 14.6 10.0-20.0 Serum Glucose 167 H 74-106 mg/dL Hemoglobin A1c 6.2 H <5.7 % A1C Calcium Level 9.2 8.7-10.4 mg/dL Phosphorus Level 3.4 2.4-5.1 mg/dL Magnesium Level 2.1 1.6-2.6 mg/dL Total Bilirubin 1.2 H 0.2-1.0 mg/dL Aspartate Amino Transferase (AST) 67 H 13-40 U/L Alanine Aminotransferase (ALT) 76 H 7-40 U/L Alkaline Phosphatase 95 46-116 U/L B-Type Natriuretic Peptide 155.63 0-100 pg/mL Total Protein 7.3 5.7-8.2 g/dL Albumin 4.7 3.2-4.8 g/dL Triglycerides Level 51 < 150 mg/dL Cholesterol Level 130 < 200 mg/dL LDL Cholesterol 73 < 100 mg/dL HDL Cholesterol 53 40-59 mg/dL Vitamin B12 Level 1905 H 211-911 pg/mL Vitamin D 25-Hydroxy 36.4 30.0-100 ng/mL Thyroid Stimulating Hormone (TSH) 0.65 0.55-4.78 uIU/mL Urine Color Colorless Yellow Urine Clarity Clear Clear Urine pH 7.0 5.0-9.0 Urine Specific [place] 1.008 1.001-1.035 Urine Protein Negative Negative Urine Ketones Trace Negative Urine Blood Trace H Negative /uL Urine Nitrite Negative Negative Urine Bilirubin Negative Negative Urine Urobilinogen Normal Negative mg/dL Urine Leukocyte Esterase Negative Negative /uL Urine RBC 17 0 - 3 /hpf Urine Microscopic WBC < 1 0-3 /HPF Urine Squamous Epithelial Cells None seen <5 /hpf Urine Bacteria None seen None Seen /hpf Urine Hyaline Casts Few 0 - 2 /lpf Urine Glucose 2+ H Normal mg/dL Urine Opiates Screen Neg NEGATIVE Urine Fentanyl Screen Neg NEGATIVE Urine Barbiturates Screen Neg NEGATIVE Urine Phencyclidine Screen Neg NEGATIVE Urine Amphetamines Screen Neg NEGATIVE Urine Benzodiazepines Screen Neg NEGATIVE Urine Cocaine Screen Neg NEGATIVE Urine Cannabinoids Screen Neg NEGATIVE Test 12/13/24 01:35 12/12/24 21:46 Range/Units Troponin I High Sensitivity 30 </=54 ng/L Platelet Estimate [place] Large Platelets Few Lactic Acid Level 1.7 0.4-2.0 mmol/L Plan/Recommendation ASSESSMENT: This is a 74-year old male who initially presented 12/12/2024 with reported syncope. Upon ED arrival patient was found to be in complete heart block with lowest documented heart rates within the 20's subsequently initiated on Dopamine infusion for rate support. Echocardiogram had revealed a preserved LVEF of 55- 60%. TSH was found normal at 0.65. Electrolytes (magnesium/potassium) were found within normal ranges. Serial HS troponin trend was found negative. Denies any use of AV ezequiel blocking agents. Electrophysiology services were subsequently involved by primary team request for EP aspects of care. Echocardiogram: Left ventricle: Moderate concentric left ventricular hypertrophy was seen. LVEF was 55-60%. There was no gross wall motion abnorma lity. Abnormal relaxation of left ventricular diastolic function was observed. Right ventricle was normal-sized with normal systolic function. Both atria were normal-sized. Aortic valve: Aortic valve was trileaflet. There was no aortic insufficiency/stenosis. There was trace mitral/tricuspid regurgitation. Pulmonary valve did not reveal any insufficiency. Right ventricular systolic pressure was assessed normal at 22 mm Hg.There was trace pericardial effusion.IVC was not visualized. Unexplained syncope, Symptomatic bradycardia Complete heart block (third degree AV block) Lowest documented HR in 20's Preserved LVEF of 55-60% Left bundle branch block ELECTROPHYSIOLOGY SUGGESTIONS FOR MANAGEMENT: Recognizing the above, patient benefits from undergoing permanent pacemaker implantation. Benefits, risk, alternatives were discussed at length with the patient/family who are in agreement to the plan of care. Therefore, will plan for tentative permanent pacemaker implantation later today with Dr. Velasco. Patient to be consented and remain NPO status. Hold all anticoagulation/antiplatelet therapy. Proceed with avoidance of AV ezequiel blocking agents. Proceed with Dopamine infusion for rate support during the interim. Remainder of cardiac management as per Interventional Cardiology services. Will proceed to follow from an EP perspective. Proceed with close rate and rhythm surveillance Proceed with close hemodynamic surveillance Proceed with optimized blood pressure control Transfuse to sustain HGB level above 7.0 Sustain Magnesium level greater than 2.0 Sustain Potassium level greater than 4.0 Follow up renal function and electrolytes Management in the ICU Follow up employment consultant recommendations Will proceed to follow from a cardiac perspective Further recommendations per clinical progression All available diagnostic labs, EKG's, and images were personally reviewed Patient's status, findings, and plan of care was reviewed and discussed with supervising physician Dr. Velasco, who is in agreement with current plan of care. Plan of care discussed with and agreed upon by patient / family / primary RN Prognosis: Guarded Thank you for allowing me to participate in the care of this patient. Further recommendations based on patients clinical course and progression, primary attending, and other consultants. Will continue to follow with primary at tending. If you have any questions or concerns, please do not hesitate to contact me. A total of 75 minutes was spent reviewing the patient record, examining the patient, making a diagnostic and therapeutic plan, discussing this plan with medical personnel, following up on diagnostic studies and following the patient for clinical stability excluding any and all procedures. At least 50% of this time was spent in direct, [id number] contact. Plan discussed with: Patient (patient and primary rn) JANJEFFREY Alicia GALAN Dec 13, 2024 18:10
--- NOTE | 2024-12-13 18:29 | ECG ---
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
[2024-12-13] MEDS: SODIUM CHLORIDE 0.9% 1,000 ML IV SCH (19:12)
--- NOTE | 2024-12-13 19:56 | DVH ---
EXAM: XY CHEST PORTABLE TECHNIQUE: Single frontal chest radiograph CLINICAL HISTORY: s/p pacer COMPARISON: XY CHEST PORTABLE on DOS: 12/12/24 Findings/Impression: Frontal chest radiograph demonstrates no acute osseous or superficial soft tissue abnormalities. Left chest wall dual-chamber pacemaker. The trachea is midline. The cardiac silhouette and mediastinum are within normal limits. Left basilar atelectasis. No definite pneumothorax, pleural effusions, or consolidations.
--- NOTE | 2024-12-13 20:58 | DVHOP2 ---
Operative Report 12/13/24 Dictated By: John Velasco MD INDICATIONS: Unexplained Syncope, symptomatic bradycardia Complete heart block,third degree AV block, HR 28 bpm, LBBB, sinus activity Preserved EF PROCEDURES: 1. Implantation of dual chamber (RV and RA ), permanent pacemaker 2. Implantation of the RV pacemaker lead, active fixation, Biotronik, MRI. 3. Implantation of the right atrial lead, active fixation, Biotronik, MRI 4. Implantation of dual chamber pacemaker generator, biotronik, MRI 3. Fluoroscopy images and interpretation. 4. Interrogation and programming of the device. 5. Conscious sedation with fentanyl and Versed for one hour 6. Left subclavian venogram, two axillary accesses obtained PROCEDURE IN DETAILS: 1. After obtaining informed consent with explanation of risks, benefits and alternatives, the patient agreed upon the planned procedure, implantation of dual chamber pacemaker, Dx secondary to CHB. Under a standard fashion, local and systemic anesthetic, conscious sedation with fentanyl and Versed, supervised by myself, right deltopectoral area was prepped and draped. Left deltopectoral pocket was made, two axillary accesses were obtained 1. Through the first access, RV pacemaker lead was advanced into the right interventricular septum. Sensing was 7 mv with pacing threshold 0.5 v at 0.5 ms. Impedance of 571 ohms. 2. Through the second access, A lead was advanced into right atrium, active fixation in appendage, Sensing A 2 MV, Pacing threshold 0.6 v at 0.5 ms,impedance 475 ohms. 3. New single-chamber dual pacemaker generator, from [employer] was connected to the leads. . The pocket was irrigated with antibiotic solution. Antibiotic powder was poured into the pocket. The skin was closed in 2 layers and at the end was stapled. CONCLUSION: 1. Status post successful implantation of dual chamber pacemaker, Biotronik, Device was programmed into DDD lower rate of 60 bpm 2. There was no immediate complication. JOHN VELASCO MD Dec 13, 2024 20:58
[2024-12-13] MEDS ORDERED: VANCOMYCIN 1GM/250ML KIT 250 ML IV SCH (21:00)
[2024-12-13] MEDS: ACETAMINOPHEN 325 MG TAB PO PRN (21:04)
[2024-12-13] MEDS: ONDANSETRON HCL 4 MG/2 ML VIAL IV PRN (22:41)
[2024-12-13] MEDS: ATORVASTATIN 20 MG TAB PO SCH (22:50)
[2024-12-14] VITALS (68 sets, daily range): BP systolic 125–170; BP diastolic 62–107; PULSE 61–85; RESP 7–22; TEMP 97.6–98.4; O2SAT 88–100
[2024-12-14 04:45] LABS: Hematocrit 36.0 % (41.0-53.0); Hemoglobin 12.3 g/dL (13.5-17.5); Mean Corpuscular Hemoglobin 29.4 pg (28.0-32.0); Mean Corpuscular Volume 85.8 fL (80.0-100.0); Nucleated Red Blood Cells % 0.3 %
[2024-12-14 04:56] LABS: Alanine Aminotransferase 41 U/L (7-40); Albumin 3.6 g/dL (3.2-4.8); Alkaline Phosphatase 66 U/L (46-116); Anion Gap 9 (5-15); BUN/Creatinine Ratio 21.4 (10.0-20.0); Bilirubin, Total 1.1 mg/dL (0.2-1.0); Blood Urea Nitrogen 18 mg/dL (9-23); Calcium 8.3 mg/dL (8.7-10.4); Carbon Dioxide 27 mmol/L (20-31); Chloride 110 mmol/L (98-107); Glucose 97 mg/dL (74-106); Potassium 4.0 mmol/L (3.5-5.1); Sodium 146 mmol/L (136-145); Total Protein 5.5 g/dL (5.7-8.2)
[2024-12-14] MEDS: VANCOMYCIN 1GM/250ML KIT 250 ML IV SCH (04:58)
--- NOTE | 2024-12-14 05:05 | DVH ---
CHEST RADIOGRAPH Indication: CXR FOR PACEMAKER/ICD LEAD PLACEMENT Technique: Single frontal view of the chest was obtained COMPARISON: XY CHEST PORTABLE on DOS: 12/13/24, XY CHEST PORTABLE on DOS: 12/12/24 FINDINGS: Lines and Tubes: Left chest wall pacemaker. Lungs: Congestion Pleura: No effusion. No pneumothorax. Cardiomediastinal contours: Unremarkable Bones: Unremarkable IMPRESSION: Left chest wall pacemaker
[2024-12-14] MEDS ORDERED: VANCOMYCIN 1GM/250ML KIT 250 ML IV SCH (06:00)
--- NOTE | 2024-12-14 08:22 | DVHSR ---
APPROVED REPORT EXAM: Two-dimensional and M-mode echocardiogram with Doppler and color Doppler. Blood Pressure: 146/59 mmHg INDICATION Complete AV Block RISK FACTORS Height: 5' 5", Weight: 159 DIMENSIONS LVDd4.3 (3.8-5.7cm)LA (2D)3.9 (1.9-4.0cm)Aortic Root3.2 (2.0-3.7cm) LVDs3.3 (2.5-4.0cm)LA (MM) (1.9-4.0cm)Aortic Cusp Exc1.9 (1.5-2.0cm) EF (%) 45.0 (55-70%)Rt. Atrium3.7 (1.9-4.0cm)Asc. Aorta cm IVSd1.4 (0.7-1.1cm)RV (D) (1.8-2.4cm) PWd1.3 (0.7-1.1cm) Mitral Valve MitralMitral Stenosis E wave0.90m/sMV Mean GR.mmHg A wave1.30m/sMV Peak GR.mmHg E/A ratio0.72D MVAcm2 Aortic Valve Aortic ValveAortic Stenosis V10.90m/Cyrus Mean GR.3mmHg V21.20m/Cyrus Peak GR.6mmHg LVOT Diameter2.3 (1.8-2.4cm)Doppler AVA3.11cm2 Conclusion Left ventricle: Moderate concentric left ventricular hypertrophy was seen. LVEF was 55-60%. There was no gross wall motion abnormality. Abnormal relaxation of left ventricular diastolic function was observed. Right ventricle was normal-sized with normal systolic function. Both atria were normal-sized. Aortic valve: Aortic valve was trileaflet. There was no aortic insufficiency/stenosis. There was tr natasha mitral/tricuspid regurgitation. Pulmonary valve did not reveal any insufficiency. Right ventricular systolic pressure was assessed normal at 22 mm Hg. There was trace pericardial effusion. IVC was not visualized.
[2024-12-14] MEDS: DOXYCYCLINE 100 MG TAB/CAP PO SCH (09:58)
--- NOTE | 2024-12-14 12:01 | ECG ---
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
--- NOTE | 2024-12-14 17:02 | DVHPN2 ---
Subjective Patient is seen at bedside today, doing well. Reviewed: H&P Changes from previous H/P or p: No Changes General: Per HPI Objective Vitals Vital Signs Date Time Temp Pulse Resp B/P (MAP) Pulse Ox O2 Delivery O2 Flow Rate FiO2 12/14/24 16:30 71 18 170/94 (119) 99 12/14/24 16:00 Room Air* 0 21 12/14/24 16:00 98.1 98.1 Intake/Output Intake and Output 12/14/24 07:00 Intake Total 2080 ml Output Total 700 ml Balance 1380 ml Intake Oral 60 ml IV Total 2020 ml Output Urine Total 700 ml Exam GEN: Healthy appearing, well-developed, NAD. HEENT: NC/AT; MMM. CV: RRR, no m/r/g. LUNGS: CTAB, no w/r/c. ABD: Soft, NT/ND, NBS, no masses or organomegaly. EXT: skin Warm, well perfused. no rashes. No clubbing, cyanosis, or edema. NEURO: Ambulating with no limitations. No focal deficits. Medications Current Medications Medications Dose Ordered Sig/Jimmy Route Start Time Stop Time Status Last Admin Dose Admin Acetaminophen 325 mg Q4HP PRN PO 12/13/24 02:30 12/14/24 05:10 325 MG Morphine Sulfate 2 mg Q4HPRN PRN IV 12/13/24 02:30 Nitroglycerin 0.4 mg Q5MINP PRN SL 12/13/24 02:30 Morphine Sulfate 2 mg Q30M PRN IV 12/13/24 02:30 Diagnostic Test (Pha) 1 strip Q6HR 12/13/24 06:00 12/14/24 11:58 1 STRIP Insulin Human Regular Q6HR SC 12/13/24 06:00 12/13/24 19:23 3 UNITS Dextrose 50 ml UD PRN IV 12/13/24 03:45 Atorvastatin Calcium 20 mg HS PO 12/13/24 22:00 12/13/24 22:50 20 MG Pantoprazole Sodium 40 mg DAILY IV 12/13/24 10:00 12/14/24 09:58 40 MG Doxycycline Monohydrate 100 mg Q12HR PO 12/14/24 10:00 12/14/24 09:58 100 MG Vancomycin HCl 250 ml @ 250 mls/hr Q12H IV 12/14/24 06:00 12/14/24 18:59 12/14/24 08:25 250 MLS/HR Ondansetron HCl 4 mg Q6HPRN PRN IV 12/13/24 22:45 12/13/24 22:41 4 MG Laboratory Results Laboratory Tests 12/14/24 03:29 Chemistry Test 12/14/24 03:29 Albumin 3.6 g/dL (3.2-4.8) Calcium Level 8.3 mg/dL (8.7-10.4) L Total Protein 5.5 g/dL (5.7-8.2) L LFT Test 12/14/24 03:29 Alanine Aminotransferase (ALT) 41 U/L (7-40) H Alkaline Phosphatase 66 U/L (46-116) Aspartate Amino Transferase (AST) 24 U/L (13-40) Total Bilirubin 1.1 mg/dL (0.2-1.0) H Urinalysis Test 12/13/24 02:20 Urine Color Colorless (Yellow) Urine Clarity Clear (Clear) Urine pH 7.0 (5.0-9.0) Urine Specific [place] 1.008 (1.001-1.035) Urine Protein Negative (Negative) Urine Ketones Trace (Negative) Urine Blood Trace /uL (Negative) H Urine Nitrite Negative (Negative) Urine Bilirubin Negative (Negative) Urine Urobilinogen Normal mg/dL (Negative) Urine Leukocyte Esterase Negative /uL (Negative) Urine RBC 17 /hpf (0 - 3) Urine Microscopic WBC < 1 /HPF (0-3) Urine Squamous Epithelial Cells None seen /hpf (<5) Urine Bacteria None seen /hpf (None Seen) Urine Hyaline Casts Few /lpf (0 - 2) Urine Glucose 2+ mg/dL (Normal) H Microbiology Microbiology Date/Time Source Procedure Growth Status 12/13/24 22:59 Nose MRSA Screen - Final Complete 12/12/24 21:49 Blood Blood Culture - Preliminary NO GROWTH AFTER 24 HOURS OF INCUBATION. Resulted Labs and/or images reviewed: Labs reviewed by me, Image(s) reviewed by me Assessment/Plan Assessment/Plan 74-year-old male with a history of having hyperkalemia about a month ago and then he left the hospital now presents after he passed out at home and had some incontinence. Patient noted to have a slow heart rate and low blood pressure on arrival 12/13: patient seen at bedside, presented for syncope. on initial eval concern for 3rd degree block and started on dopamine, goal HR>40 and <70. EP consulted and possible plan for procedure OR for PPM today. will f/u with patient thereafter. there is noted thrombocytopenia but patient unaware. 12/14: Patient had ppm inserted yesterday. Patient was upgraded to ICU overnight. Patient is stable overnight. This a.m. patient had interrogation device check of device and appears to be in good condition and functioning. EP was notified, we will continue washing patient, deescalate telemetry today. We will likely DC tomorrow with doxycycline 1 week. dx: Complete heart block, s/p PPM insertion 12/13/24 Syncope, due to above DM type 2, with neuropathy diabetic neuropathy hypertension hyperlipidemia PAD GERD BPH HLD plan: - continue dopamine . 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
--- NOTE | 2024-12-14 17:51 | DVHPN2 ---
Progress Note - Dictate Date Seen: Dec 14, 2024 Medical Necessity Reason Pt with a Central, PICC or Fol: No vital signs Vital Sign Date Time Temp Pulse Resp B/P (MAP) Pulse Ox O2 Delivery O2 Flow Rate FiO2 12/14/24 16:30 71 18 170/94 (119) 99 12/14/24 16:00 Room Air* 0 21 12/14/24 16:00 98.1 98.1 Total Intake and Output 12/13/24 12/13/24 12/14/24 15:00 23:00 07:00 Intake Total 570 ml 1510 ml Output Total 350 ml 350 ml Balance -350 ml 570 ml 1160 ml medications Current Medications Medications Dose Ordered Sig/Jimmy Route Start Time Stop Time Status Last Admin Dose Admin Acetaminophen 325 mg Q4HP PRN PO 12/13/24 02:30 12/14/24 05:10 325 MG Morphine Sulfate 2 mg Q4HPRN PRN IV 12/13/24 02:30 Nitroglycerin 0.4 mg Q5MINP PRN SL 12/13/24 02:30 Morphine Sulfate 2 mg Q30M PRN IV 12/13/24 02:30 Diagnostic Test (Pha) 1 strip Q6HR 12/13/24 06:00 12/14/24 17:06 1 STRIP Insulin Human Regular Q6HR SC 12/13/24 06:00 12/14/24 17:09 3 UNITS Dextrose 50 ml UD PRN IV 12/13/24 03:45 Atorvastatin Calcium 20 mg HS PO 12/13/24 22:00 12/13/24 22:50 20 MG Pantoprazole Sodium 40 mg DAILY IV 12/13/24 10:00 12/14/24 09:58 40 MG Doxycycline Monohydrate 100 mg Q12HR PO 12/14/24 10:00 12/14/24 09:58 100 MG Vancomycin HCl 250 ml @ 250 mls/hr Q12H IV 12/14/24 06:00 12/14/24 18:59 12/14/24 08:25 250 MLS/HR Ondansetron HCl 4 mg Q6HPRN PRN IV 12/13/24 22:45 12/13/24 22:41 4 MG laboratory and microbiology Laboratory Tests 12/14/24 03:29 Test 12/14/24 03:29 Range/Units Serum Glucose 97 74-106 mg/dL Assessment/Plan ASSESSMENT: This is a 74-year old male who initially presented 12/12/2024 with reported syncope. Upon ED arrival patient was found to be in complete heart block with lowest documented heart rates within the 20's subsequently initiated on Dopamine infusion for rate support. Echocardiogram had revealed a preserved LVEF of 55- 60%. TSH was found normal at 0.65. Electrolytes (magnesium/potassium) were found within normal ranges. Serial HS troponin trend was found negative. Denies any use of AV ezequiel blocking agents. Electrophysiology services were subsequently involved by primary team request for EP aspects of care. Echocardiogram: Left ventricle: Moderate concentric left ventricular hypertrophy was seen. LVEF was 55-60%. There was no gross wall motion abnormality. Abnormal relaxation of left ventricular diastolic function was observed. Right ventricle was normal-sized with normal systolic function. Both atria were normal-sized. Aortic valve: Aortic valve was trileaflet. There was no aortic insufficiency/stenosis. There was trace mitral/tricuspid regurgitation. Pulmonary valve did not reveal any insufficiency. Right ventricular systolic pressure was assessed normal at 22 mm Hg.There was trace pericardial effusion.IVC was not visualized. Unexplained syncope, Symptomatic bradycardia Complete heart block (third degree AV block) Lowest documented HR in 20's Preserved LVEF of 55-60% Left bundle branch block Status post successful Biotronik dual-chamber PPM implantation 12/13/2024 ELECTROPHYSIOLOGY SUGGESTIONS FOR MANAGEMENT: Seen and examined at the bedside within the ICU. Status post successful Biotronik dual-chamber PPM implantation . Post operative chest imaging revealed no evidence for pneumothorax. Post operative device interrogation revealed adequate sensing/pacing parameters, overall appropriately functioning device. Dressing to site of implantation remains clean, dry and intact. Dressing to site of implantation is to remain clean, dry, and intact. To proceed with use of sling to left upper extremity. Proceed to hold all anti- platelet/anticoagulation therapies. Patient will need to follow up with outpatient cardiology services within 7 days of implantation for wound check/staple removal. To proceed with Doxycycline 100mg po twice daily for a total of 14 doses. The above mentioned was discussed at length with the patient which he remains agreeable to the plan of care. Remains stable from EP perspective, downgrade to telemetry. Will observe for one additional night and if remain stable plan for discharge tomorrow. Will proceed to follow from EP perspective. . Proceed with close rate and rhythm surveillance Proceed with close hemodynamic surveillance Proceed with optimized blood pressure control Transfuse to sustain HGB level above 7.0 Sustain Magnesium level greater than 2.0 Sustain Potassium level greater than 4.0 Follow up renal function and electrolytes Ok to downgrade to telemetry Follow up groundwater consultant recommendations Will proceed to follow from a cardiac perspective Further recommendations per clinical progression All available diagnostic labs, EKG's, and images were personally reviewed Patient's status, findings, and plan of care was reviewed and discussed with supervising physician Dr. Velasco, who is in agreement with current plan of care. Plan of care discussed with and agreed upon by patient / family / primary RN Prognosis: Guarded Thank you for allowing me to participate in the care of this patient. Further recommendations based on patients clinical course and progression, primary attending, and other consultants. Will continue to follow with primary attending. If you have any questions or concerns, please do not hesitate to contact me. A total of 75 minutes was spent reviewing the patient record, examining the patient, making a diagnostic and therapeutic plan, discussing this plan with medical personnel, following up on diagnostic studies and following the patient for clinical stability excluding any and all procedures. At least 50% of this time was spent in direct, [id number] contact. Plan discussed with: Patient (Patient and primary rn ) JEFFREY MONTOYA Dec 14, 2024 17:51
[2024-12-15 01:00] VITALS: BP 151/90; PULSE 76; RESP 17; TEMP 98.1; O2SAT 95
[2024-12-15 05:00] VITALS: BP 153/89; PULSE 70; RESP 18; TEMP 97.7; O2SAT 96
[2024-12-15 08:00] VITALS: PULSE 68; PULSE 78; RESP 18; O2SAT 95
[2024-12-15 09:00] VITALS: BP 155/93; PULSE 67; RESP 18; TEMP 98.4; O2SAT 96
[2024-12-15 13:00] VITALS: BP 155/93; PULSE 64; RESP 20; TEMP 97.8; O2SAT 96
[2024-12-15] MEDS ORDERED: ATOR20TA50 PO (13:42)
[2024-12-15] MEDS ORDERED: DOX100T PO (13:42)
--- NOTE | 2024-12-15 13:44 | DVHDS2 ---
Discharge Summary Date of Admission Dec 13, 2024 at 02:25 Date of Discharge: Dec 15, 2024 Labs/Diagnostic Data: Laboratory Results Test 12/15/24 12:33 12/14/24 03:29 12/13/24 05:42 12/13/24 04:49 POC Glucose 144 mg/dl (70-106) White Blood Count 5.1 10^3/uL (4.4-10.8) Red Blood Count 4.20 10^6/uL (4.5-5.90) Hemoglobin 12.3 g/dL (13.5-17.5) Hematocrit 36.0 % (41.0-53.0) Mean Corpuscular Volume 85.8 fL (80.0-100.0) Mean Corpuscular Hemoglobin 29.4 pg (28.0-32.0) Mean Corpuscular Hemoglobin Concent 34.3 g/dL (32.0-36.0) Red Cell Distribution Width 13.7 % (11.8-14.3) Platelet Count 56 10^3/uL (140-450) Mean Platelet Volume 7.7 fL (6.9-10.8) Neutrophils (%) (Auto) 64.2 % (37.0-80.0) Lymphocytes (%) (Auto) 24.5 % (10.0-50.0) Monocytes (%) (Auto) 8.7 % (0.0-12.0) Eosinophils (%) (Auto) 2.0 % (0.0-7.0) Basophils (%) (Auto) 0.6 % (0.0-2.0) Neutrophils # (Auto) 3.3 10 ^3/uL (1.6-8.6) Lymphocytes # (Auto) 1.3 10 ^3/uL (0.4-5.4) Monocytes # (Auto) 0.4 10 ^3/uL (0-1.3) Eosinophils # (Auto) 0.1 10 ^3/uL (0-0.8) Basophils # (Auto) 0 10 ^3/uL (0-0.2) Nucleated Red Blood Cells 0.3 % Sodium Level 146 mmol/L (136-145) Potassium Level 4.0 mmol/L (3.5-5.1) Chloride Level 110 mmol/L (98-107) Carbon Dioxide Level 27 mmol/L (20-31) Anion Gap 9 (5-15) Blood Urea Nitrogen 18 mg/dL (9-23) Creatinine 0.84 mg/dL (0.700-1.30) Glomerular Filtration Rate Calc 92 mL/min (>90) BUN/Creatinine Ratio 21.4 (10.0-20.0) Serum Glucose 97 mg/dL (74-106) Calcium Level 8.3 mg/dL (8.7-10.4) Total Bilirubin 1.1 mg/dL (0.2-1.0) Aspartate Amino Transferase (AST) 24 U/L (13-40) Alanine Aminotransferase (ALT) 41 U/L (7-40) Alkaline Phosphatase 66 U/L (46-116) Total Protein 5.5 g/dL (5.7-8.2) Albumin 3.6 g/dL (3.2-4.8) Prothrombin Time 11.2 sec (9.3-11.8) Prothrombin Time INR 1.06 (0.9-1.15) Activated Partial Thromboplast Time 23.4 SEC (24.5-34.5) Hemoglobin A1c 6.2 % A1C (<5.7) Phosphorus Level 3.4 mg/dL (2.4-5.1) Magnesium Level 2.1 mg/dL (1.6-2.6) B-Type Natriuretic Peptide 155.63 pg/mL (0-100) Triglycerides Level 51 mg/dL (< 150) Cholesterol Level 130 mg/dL (< 200) LDL Cholesterol 73 mg/dL (< 100) HDL Cholesterol 53 mg/dL (40-59) Vitamin B12 Level 1905 pg/mL (211-911) Vitamin D 25-Hydroxy 36.4 ng/mL (30.0-100) Thyroid Stimulating Hormone (TSH) 0.65 uIU/mL (0.55-4.78) Test 12/13/24 02:20 12/13/24 01:35 12/12/24 21:46 Urine Color Colorless (Yellow) Urine Clarity Clear (Clear) Urine pH 7.0 (5.0-9.0) Urine Specific [place] 1.008 (1.001-1.035) Urine Protein Negative (Negative) Urine Ketones Trace (Negative) Urine Blood Trace /uL (Negative) Urine Nitrite Negative (Negative) Urine Bilirubin Negative (Negative) Urine Urobilinogen Normal mg/dL (Negative) Urine Leukocyte Esterase Negative /uL (Negative) Urine RBC 17 /hpf (0 - 3) Urine Microscopic WBC < 1 /HPF (0-3) Urine Squamous Epithelial Cells None seen /hpf (<5) Urine Bacteria None seen /hpf (None Seen) Urine Hyaline Casts Few /lpf (0 - 2) Urine Glucose 2+ mg/dL (Normal) Urine Opiates Screen Neg (NEGATIVE) Urine Fentanyl Screen Neg (NEGATIVE) Urine Barbiturates Screen Neg (NEGATIVE) Urine Phencyclidine Screen Neg (NEGATIVE) Urine Amphetamines Screen Neg (NEGATIVE) Urine Benzodiazepines Screen Neg (NEGATIVE) Urine Cocaine Screen Neg (NEGATIVE) Urine Cannabinoids Screen Neg (NEGATIVE) Troponin I High Sensitivity 30 ng/L (</=54) Platelet Estimate [place] Large Platelets Few Lactic Acid Level 1.7 mmol/L (0.4-2.0) Other Laboratory Tests 12/14/24 03:29 Brief Hx & Hospital Course: 74-year-old male with a history of having hyperkalemia about a month ago and then he left the hospital now presents after he passed out at home and had some incontinence. Patient noted to have a slow heart rate and low blood pressure on arrival 12/13: patient seen at bedside, presented for syncope. on initial eval concern for 3rd degree block and started on dopamine, goal HR>40 and <70. EP consulted and possible plan for procedure OR for PPM today. will f/u with patient thereafter. there is noted thrombocytopenia but patient unaware. 12/14: Patient had ppm inserted yesterday. Patient was upgraded to ICU overnight. Patient is stable overnight. This a.m. patient had interrogation device check of device and appears to be in good condition and functioning. EP was notified, we will continue washing patient, deescalate telemetry today. We will likely DC tomorrow with doxycycline 1 week. Condition at Discharge: Good Final Diagnosis/Problems List Complete heart block, s/p PPM insertion 12/13/24 Syncope, due to above DM type 2, with neuropathy diabetic neuropathy hypertension hyperlipidemia PAD GERD BPH HLD Discharge Disposition: Home Discharge Instruct/Medications Scheduled Atorvastatin Calcium (Atorvastatin Calcium), 20 MG PO HS Doxycycline Monohydrate (Doxycycline Monohydrate), 100 MG PO Q12HR Discharge Statement: "Patient was advised to return to the ER or call 911 if any headaches, dizziness, shortness of breath, chest pain, abdominal pain, bleeding, fevers, or worsening of medical condition. Patient was counseled about treatment plan, medications, possible side effects, patientverbalized understanding. All questions were answered to the best of my ability. This discharge took greater then 30 minutes in planning, reviewing documentation, counseling the patient, and discussing with other team members." ASSESSMENT ASSESSMENT Assessment Date of Service: Dec 15, 2024 Billing Provider: TERESA DEXTER MD Common Visit Codes: 85056-HFD/OBS DISCH DAY >30min TERESA DEXTER MD Dec 15, 2024 13:44
[2024-12-15 15:42] VITALS: BP 160/92; PULSE 68; RESP 18; TEMP 36.6; O2SAT 95
--- NOTE | 2024-12-15 16:30 | DVHPN2 ---
Progress Note - Dictate Date Seen: Dec 15, 2024 Has the PT tested + for MRSA If YES, has PT been informed?: No Medical Necessity Reason Pt with a Central, PICC or Fol: No vital signs Vital Sign Date Time Temp Pulse Resp B/P (MAP) Pulse Ox O2 Delivery O2 Flow Rate FiO2 12/15/24 15:42 36.6 68 18 95 12/15/24 13:00 155/93 (113) 12/15/24 08:00 Room Air* 0 21 Total Intake and Output 12/14/24 12/14/24 12/15/24 15:00 23:00 07:00 Intake Total 400 ml 100 ml 600 ml Output Total 700 ml Balance 400 ml 100 ml -100 ml medications Current Medications Medications Dose Ordered Sig/Jimmy Route Start Time Stop Time Status Last Admin Dose Admin Acetaminophen 325 mg Q4HP PRN PO 12/13/24 02:30 12/14/24 05:10 325 MG Morphine Sulfate 2 mg Q4HPRN PRN IV 12/13/24 02:30 Nitroglycerin 0.4 mg Q5MINP PRN SL 12/13/24 02:30 Morphine Sulfate 2 mg Q30M PRN IV 12/13/24 02:30 Diagnostic Test (Pha) 1 strip Q6HR 12/13/24 06:00 12/15/24 12:00 1 STRIP Insulin Human Regular Q6HR SC 12/13/24 06:00 12/15/24 12:00 2 UNITS Dextrose 50 ml UD PRN IV 12/13/24 03:45 Atorvastatin Calcium 20 mg HS PO 12/13/24 22:00 12/14/24 21:51 20 MG Pantoprazole Sodium 40 mg DAILY IV 12/13/24 10:00 12/15/24 08:47 40 MG Doxycycline Monohydrate 100 mg Q12HR PO 12/14/24 10:00 12/15/24 08:47 100 MG Ondansetron HCl 4 mg Q6HPRN PRN IV 12/13/24 22:45 12/13/24 22:41 4 MG laboratory and microbiology Laboratory Tests 12/14/24 03:29 Test 12/14/24 03:29 Range/Units Serum Glucose 97 74-106 mg/dL Assessment/Plan ASSESSMENT: This is a 74-year old male who initially presented 12/12/2024 with reported syncope. Upon ED arrival patient was found to be in complete heart block with lowest documented heart rates within the 20's subsequently initiated on Dopamine infusion for rate support. Echocardiogram had revealed a preserved LVEF of 55- 60%. TSH was found normal at 0.65. Electrolytes (magnesium/potassium) were found within normal ranges. Serial HS troponin trend was found negative. Denies any use of AV ezequiel blocking agents. Electrophysiology services were subsequently involved by primary team request for EP aspects of care. Echocardiogram: Left ventricle: Moderate concentric left ventricular hypertrophy was seen. LVEF was 55-60%. There was no gross wall motion abnormality. Abnormal relaxation of left ventricular diastolic function was observed. Right ventricle was normal-sized with normal systolic function. Both atria were normal-sized. Aortic valve: Aortic valve was trileaflet. There was no aortic insufficiency/stenosis. There was trace mitral/tricuspid regurgitation. Pulmonary valve did not reveal any insufficiency. Right ventricular systolic pressure was assessed normal at 22 mm Hg.There was trace pericardial effusion.IVC was not visualized. Unexplained syncope, Symptomatic bradycardia Complete heart block (third degree AV block) Lowest documented HR in 20's Preserved LVEF of 55-60% Left bundle branch block Status post successful Biotronik dual-chamber PPM implantation 12/13/2024 ELECTROPHYSIOLOGY SUGGESTIONS FOR MANAGEMENT: Seen and examined at the bedside within the ICU. Status post successful Biotronik dual-chamber PPM implantation . Post operative chest imaging revealed no evidence for pneumothorax. Post operative device interrogation revealed adequate sensing/pacing parameters, overall appropriately functioning device. Dressing to site of implantation remains clean, dry and intact. Dressing to site of implantation is to remain clean, dry, and intact. To proceed with use of sling to left upper extremity. Proceed to hold all anti- platelet/anticoagulation therapies. Patient will need to follow up with outpatient cardiology services within 7 days of implantation for wound check/staple removal. To proceed with Doxycycline 100mg po twice daily for a total of 14 doses. The above mentioned was discussed at length with the patient which he remains agreeable to the plan of care. Remains stable from EP perspective. Proceed with close rate and rhythm surveillance Proceed with close hemodynamic surveillance Proceed with optimized blood pressure control Transfuse to sustain HGB level above 7.0 Sustain Magnesium level greater than 2.0 Sustain Potassium level greater than 4.0 Follow up renal function and electrolytes Ok to downgrade to telemetry Follow up retirement consultant recommendations Will proceed to follow from a cardiac perspective Further recommendations per clinical progression All available diagnostic labs, EKG's, and images were personally reviewed Patient's status, findings, and plan of care was reviewed and discussed with supervising physician Dr. Velasco, who is in agreement with current plan of care. Plan of care discussed with and agreed upon by patient / family / primary RN Prognosis: Guarded Thank you for allowing me to participate in the care of this patient. Further recommendations based on patients clinical course and progression, primary attending, and other consultants. Will continue to follow with primary attending. If you have any questions or concerns, please do not hesitate to contact me. A total of 75 minutes was spent reviewing the patient record, examining the patient, making a diagnostic and therapeutic plan, discussing this plan with medical personnel, following up on diagnostic studies and following the patient for clinical stability excluding any and all procedures. At least 50% of this time was spent in direct, [id number] contact. Plan discussed with: Patient (patient, family, primary rn ) JEFFREY MONTOYA STAVE GRADER Dec 15, 2024 16:30
== END 2024-12-15 16:14 | disposition home or self-care (01) | DRG 244 ==
LOC: EDBD 21:07 → ER 21:07 → OVERFLOW 12-13 02:25 → ICU WEST 12-13 22:05 → TELE-WESTW 12-14 17:06
PROVIDERS: ADMIT Student in an Organized Health Care Education/Training Program; ATTEND Student in an Organized Health Care Education/Training Program
PROC: 02HK3JZ Insertion of Pacemaker Lead into Right Ventricle, Percutaneous Approach (ICD-10-PCS; principal; 2024-12-10)
PROC: 0JH606Z Insertion of Pacemaker, Dual Chamber into Chest Subcutaneous Tissue and Fascia, Open Approach (ICD-10-PCS; 2024-12-10)
PROC: 02H63JZ Insertion of Pacemaker Lead into Right Atrium, Percutaneous Approach (ICD-10-PCS; 2024-12-10)
PROC: B5171ZZ Fluoroscopy of Left Subclavian Vein using Low Osmolar Contrast (ICD-10-PCS; 2024-12-10)
DX: I44.2 Atrioventricular block, complete (principal); D69.6 Thrombocytopenia, unspecified; E11.40 Type 2 diabetes mellitus with diabetic neuropathy, unspecified; E78.5 Hyperlipidemia, unspecified; K21.9 Gastro-esophageal reflux disease without esophagitis; N40.0 Benign prostatic hyperplasia without lower urinary tract symptoms; I11.9 Hypertensive heart disease without heart failure
CPT/HCPCS: 33208; 36415; 71045; 80053; 80061; 80307; 81001; 82306; 82607; 82962; 83036; 83605; 83735; 83880; 84100; 84443; 84484; 85025; 85610; 85730; 86850; 86900; 86901; 87040; 87081; 93005; 93306; 93886; 96361; 96365; 96375; 99152; 99291; G0378; J1815; J2250; J2405; J2470; Q9967